=== PATIENT | male | born 1980 | race Caucasian/White ===

== ENCOUNTER 2017-06-09 20:21 | Inpatient (IN) | payer MEDICAID ==
[~2017-06-09] VITALS: Ht 167.6 cm; Wt 109.5 kg
[2017-06-09 20:31] VITALS: Ht 167.6 cm; Wt 109.5 kg
[2017-06-09 21:07] LABS: CALCIUM 7.5 mg/dL (8.5-10.1); CARBON DIOXIDE 22.8 mmol/L (21-32); CHLORIDE SERUM 104 mmol/L (98-107); CREATININE SERUM 0.6 mg/dL (0.7-1.3); GFR1 > 60 mL/min; GLUCOSE SERUM 102 mg/dL (74-106); POTASSIUM SERUM 3.9 mmol/L (3.5-5.1); SODIUM SERUM 134 mmol/L (136-145)
[2017-06-09 21:12] LABS: ALKALINE PHOSPHATASE 272 U/L (46-116); ALT/SGPT 67 U/L (16-63); AST/SGOT 96 U/L (15-37); BASOPHIL % 0.4 % (0-2); RED CELL DISTRIBUTION WIDTH 23.4 % (11.5-14.5)
[2017-06-09 21:13] LABS: PLATELET COUNT 68 x10^3mcL (130-400)
[2017-06-09 21:14] LABS: ALBUMIN 1.7 g/dL (3.4-5.0)
[2017-06-09 21:25] LABS: TOTAL PROTEIN, SERUM 5.4 g/dL (6.4-8.2)
[2017-06-10 07:45] VITALS: BP 108/62
[2017-06-10 08:06] VITALS: BP 109/69
[2017-06-10 09:21] LABS: MAGNESIUM 2.1 mg/dL (1.8-2.4); PHOSPHOROUS 3.4 mg/dL (2.5-4.9)
[2017-06-10 09:22] LABS: CHOLESTEROL/HDL RATIO 4.6
[2017-06-10 09:28] LABS: T3 TOTAL 0.86 ng/mL
[2017-06-10 09:33] LABS: FREE T4 1.16 ng/dL (0.76-1.46); FREE THYROXINE INDEX 2.2 ug/dL (1.4-4.5); T4(THYROXINE) 5.7 ug/dL (4.7-13.3)
[2017-06-10] MEDS ORDERED: LACTULOSE10 GM/152 PO (10:27)
[2017-06-10] MEDS ORDERED: LIBRAX1 CAP PO (10:29)
[2017-06-10] MEDS ORDERED: PROPRANOLOL HCL10 MG PO (10:33)
[2017-06-10 10:51] LABS: UA SPECIFIC GRAVITY <=1.005 (1.005-1.035); microscopic required? YES; urine erythrocyte NEGATIVE (NEGATIVE)
[2017-06-10 11:00] LABS: AMPHETAMINE QUAL UR NONE DETECTED (NEG <=1000)
[2017-06-10 11:24] VITALS: BP 108/62
[2017-06-10 17:35] LABS: RED BLOOD CELLS 2.01 M/mm3 (4.52-5.90)
[2017-06-10 17:44] LABS: IRON 51 ug/dL (65-170)
[2017-06-10 17:52] LABS: TOTAL IRON BINDING CAPACITY 93 ug/dL (250-450)
[2017-06-10 18:02] VITALS: BP 98/57
[2017-06-10 21:29] VITALS: BP 107/63
[2017-06-11 05:29] VITALS: BP 109/61
[2017-06-11 06:35] LABS: BASOPHIL % 0.7 % (0-2)
[2017-06-11 06:47] LABS: PLATELET COUNT 82 x10^3mcL (130-400); RED CELL DISTRIBUTION WIDTH 23.5 % (11.5-14.5)
[2017-06-11 06:50] LABS: CALCIUM 7.7 mg/dL (8.5-10.1); CARBON DIOXIDE 22.3 mmol/L (21-32); CHLORIDE SERUM 108 mmol/L (98-107); CREATININE SERUM 0.8 mg/dL (0.7-1.3); GFR1 > 60 mL/min; GLUCOSE SERUM 101 mg/dL (74-106); POTASSIUM SERUM 3.9 mmol/L (3.5-5.1); SODIUM SERUM 138 mmol/L (136-145)
[2017-06-11 08:35] LABS: rbc morphology (normal/abnorm) ABNORMAL (NORMAL)
[2017-06-11 09:02] VITALS: BP 106/51
[2017-06-11 13:00] VITALS: BP 99/55
[2017-06-11 16:40] VITALS: BP 109/62
[2017-06-11 22:04] VITALS: BP 104/56
[2017-06-11 22:26] LABS: APPEARANCE FLUID HAZY; SOURCE FLUID ASCITES
[2017-06-11 22:27] LABS: COLOR FLUID YELLOW; LYMPHOCYTE FLUID 67 %; MONOCYTE FLUID 3 %; RBC FLUID 109 /cumm; WBC FLUID 74 /cumm
[2017-06-12 05:36] VITALS: BP 116/68
[2017-06-12 06:50] LABS: CALCIUM 7.5 mg/dL (8.5-10.1); CARBON DIOXIDE 23.6 mmol/L (21-32); CHLORIDE SERUM 109 mmol/L (98-107); CREATININE SERUM 0.6 mg/dL (0.7-1.3); GFR1 > 60 mL/min; GLUCOSE SERUM 81 mg/dL (74-106); PHOSPHOROUS 3.5 mg/dL (2.5-4.9); POTASSIUM SERUM 3.7 mmol/L (3.5-5.1); SODIUM SERUM 140 mmol/L (136-145)
[2017-06-12 07:02] LABS: BASOPHIL % 0.7 % (0-2)
[2017-06-12 07:10] LABS: PLATELET COUNT 73 x10^3mcL (130-400); RED CELL DISTRIBUTION WIDTH 23.7 % (11.5-14.5)
[2017-06-12 07:14] LABS: rbc morphology (normal/abnorm) ABNORMAL (NORMAL)
[2017-06-12 10:19] VITALS: BP 87/55
[2017-06-12] MEDS ORDERED: LEVAQUIN750 MG PO (11:10)
[2017-06-12] MEDS ORDERED: CLINDAMYCIN HC300 MG PO (11:27)
[2017-06-12 12:43] LABS: BASOPHIL % 0.7 % (0-2)
[2017-06-12 12:45] LABS: PLATELET COUNT 90 x10^3mcL (130-400); RED CELL DISTRIBUTION WIDTH 24.2 % (11.5-14.5)
[2017-06-12 12:46] LABS: rbc morphology (normal/abnorm) ABNORMAL (NORMAL)
[2017-06-12 12:52] VITALS: BP 104/65
[2017-06-12] MEDS ORDERED: LAC PO (16:32)
[2017-06-12] MEDS ORDERED: ALD50 PO (16:33)
[2017-06-12] MEDS ORDERED: FOL1 PO (16:34)
[2017-06-12] MEDS ORDERED: L40 PO (16:34)
[2017-06-12] MEDS ORDERED: THI100 PO (16:34)
[2017-06-12] MEDS ORDERED: THERAGRAN-M1 TA4 PO (16:35)
[2017-06-12] MEDS ORDERED: VITC PO (16:35)
[2017-06-12] MEDS ORDERED: ATI1 PO (16:37)
[2017-06-12] MEDS ORDERED: LAC15L PO (16:39)
[2017-06-12 16:46] VITALS: BP 104/65
[2017-06-12 19:19] VITALS: BP 98/56
== END 2017-06-12 20:29 | disposition home or self-care (01) | DRG 280 ==
LOC: ED 20:21 → DU 06-10 05:06
PROVIDERS: Emergency Medicine; Family Medicine
DX: K70.31 Alcoholic cirrhosis of liver with ascites (principal); K70.11 Alcoholic hepatitis with ascites; E43 Unspecified severe protein-calorie malnutrition; G93.41 Metabolic encephalopathy; K76.6 Portal hypertension; K72.90 Hepatic failure, unspecified without coma; D69.59 Other secondary thrombocytopenia; I85.10 Secondary esophageal varices without bleeding; E87.1 Hypo-osmolality and hyponatremia; F10.20 Alcohol dependence, uncomplicated; D64.9 Anemia, unspecified; N39.0 Urinary tract infection, site not specified; J98.11 Atelectasis; B18.2 Chronic viral hepatitis C; F17.210 Nicotine dependence, cigarettes, uncomplicated; Z68.27 Body mass index [BMI] 27.0-27.9, adult; Z91.19 Patient's noncompliance with other medical treatment and regimen
CPT/HCPCS: 83880; 84439; 90658; 94150; G0480; J1170; J1885; J1940; J1956; J2916; J3490; P9047; Q0092

== ENCOUNTER 2018-09-30 14:34 | Emergency (ER) | payer SELFPAY ==
[~2018-09-30] VITALS: Ht 172.7 cm; Wt 79.4 kg
[~2018-09-30 14:34] MED LIST: ALD50 PO; ATI1 PO; CLINDAMYCIN HC300 MG PO; FOL1 PO; L40 PO; LAC PO; LAC15L PO; LACTULOSE10 GM/152 PO; LEVAQUIN750 MG PO; LIBRAX1 CAP PO; PROPRANOLOL HCL10 MG PO; THERAGRAN-M1 TA4 PO; THI100 PO; VITC PO
[2018-09-30 14:41] VITALS: BP 139/84; Ht 172.7 cm; Wt 79.4 kg
== END 2018-09-30 19:02 | disposition home or self-care (01) ==
LOC: ED 14:34
DX: S82.831A Other fracture of upper and lower end of right fibula, initial encounter for closed fracture (principal); S90.31XA Contusion of right foot, initial encounter; Z86.19 Personal history of other infectious and parasitic diseases; W20.8XXA Other cause of strike by thrown, projected or falling object, initial encounter; Y93.89 Activity, other specified; Y92.89 Other specified places as the place of occurrence of the external cause; Y99.8 Other external cause status
CPT/HCPCS: J1885; Q0092

== ENCOUNTER 2018-10-13 10:43 | Emergency (ER) | payer SELFPAY ==
[~2018-10-13] VITALS: Ht 172.7 cm; Wt 83.9 kg
[2018-10-13 10:47] VITALS: Ht 172.7 cm; Wt 83.9 kg
[2018-10-13 13:15] VITALS: BP 156/94
== END 2018-10-13 13:15 | disposition home or self-care (01) ==
LOC: ED 10:43
DX: S82.831D Other fracture of upper and lower end of right fibula, subsequent encounter for closed fracture with routine healing (principal); Z86.19 Personal history of other infectious and parasitic diseases; X58.XXXD Exposure to other specified factors, subsequent encounter